=== PATIENT | male | born 1975 | race African-American/Black ===

== ENCOUNTER 2016-10-04 18:49 | Emergency (ER) | payer OTHER ==
--- NOTE | 2016-10-04 19:21 | ER Document Report ---
ED Medical Screen (RME) - General Stated Complaint: NECK, RIGHT SHOULDER AND BACK PAIN Notes: Right shoulder and back pain for a month and a half after a work-related accident. TRAVEL OUTSIDE OF THE [place] IN LAST 30 DAYS: No - Related Data Allergies/Adverse Reactions: hydrocodone bitartrate [From Vicodin] Allergy (Verified 08/15/16 17:22) Past Medical History - Immunizations Immunizations up to date: Yes Hx Diphtheria, Pertussis, Tetanus Vaccination: Yes Physical Exam - Vital signs Vitals: Temp Pulse Resp BP Pulse Ox 98.3 F 87 18 131/81 H 100 10/04/16 19:09 10/04/16 19:09 10/04/16 19:09 10/04/16 19:09 10/04/16 19:09 Course - Vital Signs Vital signs: Temp Pulse Resp BP Pulse Ox 98.3 F 87 18 131/81 H 100 10/04/16 19:09 10/04/16 19:09 10/04/16 19:09 10/04/16 19:09 10/04/16 19:09
[2016-10-04] MEDS ORDERED: CYCLOBENZAPRINE HCL 10 MG TABLET PO ONE (22:22)
[2016-10-04] MEDS ORDERED: KETOROLAC TROMETHAMINE 60 MG/2 ML SDV IM ONE (22:22)
--- NOTE | 2016-10-04 22:22 | ER Document Report ---
HPI - HPI Patient complains to provider of: shoulder pain Pain Level: 3 Context: Patient is a 41-year-old male who presents with chronic shoulder pain. Patient states that he was injured at work on August 14. He needs had difficulty following up with orthopedics due to not having Workmen's Comp. out of his job and cost of [id number] co-pay. 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 Otherwise he states that his pain has remained about the same. He has been using heat and ice as well as tyrz-[id number]-[id number] anti-inflammatories. Denies any new injury. Otherwise is a healthy male with no other medical issues. - DERM Skin Color: Normal, Matt Past Medical History - General Information source: Patient - Social History Smoking Status: Current Every Day Smoker Chew tobacco use (# tins/day): No Frequency of alcohol use: None Drug Abuse: None Family History: Arthritis, CVA, DM, Hyperlipidemia, Hypertension. denies: CAD, Malignancy, Thyroid Disfunction Patient has suicidal ideation: No Patient has homicidal ideation: No Renal/ Medical History: Denies: Hx Peritoneal Dialysis - Immunizations Immunizations up to date: Yes Hx Diphtheria, Pertussis, Tetanus Vaccination: Yes Vertical Provider Document - CONSTITUTIONAL Agree With Documented VS: Yes Exam Limitations: No Limitations General Appearance: WD/WN, No Apparent Distress - INFECTION CONTROL TRAVEL OUTSIDE OF THE [place] IN LAST 30 DAYS: No - RESPIRATORY Respiratory: Chest Non-Tender O2 Sat by Pulse Oximetry: 100 - CARDIOVASCULAR Pulses: Normal: Radial Notes: Bilateral upper extremities digits with capillary refill less than 2 seconds - MUSCULOSKELETAL/EXTREMETIES Musculoskeletal/Extremeties: negative: Edema Notes: Patient's right upper extremity is very tense, inflamed. 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 No evidence of erythema, swelling or tenderness indicative of a septic joint. Patient passive range of motion is full active range of motion is very guarded. - NEURO Level of Consciousness: Awake, Alert, Appropriate Motor/Sensory: No Motor Deficit, No Sensory Deficit Course - Re-evaluation Re-evalutation: 10/04/16 23:01 Patient has evidence of a chronic internal shoulder injury. Patient was referred to new orthopedic practice and also told to get in contact with the social work office for assistance in caring for co-pays. [facility]. - Vital Signs Vital signs: Temp Pulse Resp BP Pulse Ox 98.3 F 87 18 131/81 H 100 10/04/16 19:09 10/04/16 19:09 10/04/16 19:09 10/04/16 19:09 10/04/16 19:09 Discharge - Discharge Clinical Impression: Shoulder pain Condition: Good Disposition: HOME, SELF-CARE Instructions: Shoulder Injury ([facility]), Oral Narcotic Medication ([facility]), Warm Packs ([facility]), Ice Packs ([facility]), Pain Medication Injection ([facility]) Additional Instructions: [facility] Ask for a hand/arm specialist [id number] Call the hospital main number and ask to speak with Social workers office Prescriptions: Ondansetron HCl [Zofran] 4 mg PO Q6HP PRN #15 tablet PRN Reason: Oxycodone HCl/Acetaminophen [Percocet 5-325 mg Tablet] 1 tab PO Q6HP PRN #15 tab PRN Reason: Meloxicam [Mobic 15 mg Tablet] 15 mg PO DAILY #30 tablet Prednisone 5 mg PO ASDIR #1 tab.ds.pk Forms: Elevated Blood Pressure
[2016-10-04 23:06] VITALS: BP 136/88
== END 2016-10-04 22:40 | disposition home or self-care (01) ==
LOC: ER 18:49
DX: S49.91XA Unspecified injury of right shoulder and upper arm, initial encounter (principal); W22.8XXA Striking against or struck by other objects, initial encounter; Y99.0 Civilian activity done for income or pay; M25.511 Pain in right shoulder; G89.29 Other chronic pain; F17.200 Nicotine dependence, unspecified, uncomplicated
CPT/HCPCS: 99283; 96372; 72040; 72100; 73030; J1885

== ENCOUNTER 2017-05-18 12:58 | Emergency (ER) | payer OTHER ==
[2017-05-18] MEDS ORDERED: IBUPROFEN 800 MG TABLET PO ONE (13:59)
--- NOTE | 2017-05-18 14:08 | ER Document Report ---
ED Extremity Problem, Upper - General Chief Complaint: Shoulder Pain Stated Complaint: RIGHT SHOULDER Time Seen by Provider: 05/18/17 13:37 Mode of Arrival: Ambulatory Information source: Patient Notes: 42-year-old male presents to ED for right shoulder pain. He has had right shoulder pain for since a fall August 15, 2016. He states he fell again 3 days ago. States he fell off the porch playing with his kids and landed on his right shoulder. He states he has never followed up with orthopedics since his first injury because he cannot afford it. 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 TRAVEL OUTSIDE OF THE [place] IN LAST 30 DAYS: No - HPI Patient complains to provider of: Injury, Pain, Right, Shoulder. No: Swelling Onset: Other - 3 days Recent injury: Possibly Where: Home, Outdoors Quality of pain: Sharp Severity of pain: Severe Pain Level: 5 Context: Fall Exacerbated by: Movement, Exertion Relieved by: Rest, Positioning Similar symptoms previously: Yes Recently seen / treated by doctor: No - Related Data Allergies/Adverse Reactions: hydrocodone bitartrate [From Vicodin] Allergy (Verified 05/18/17 13:25) Home Medications: Current Home Medications No Home Medications 05/18/17 [History] Past Medical History - General Information source: Patient - Social History Smoking Status: Current Every Day Smoker Cigarette use (# per day): Yes - 1 cigar a day Chew tobacco use (# tins/day): No Smoking Education Provided: Yes - Less than 2 minute Frequency of alcohol use: None Drug Abuse: None Occupation: none Lives with: Family Family History: Arthritis, CVA, DM, Hyperlipidemia, Hypertension. denies: CAD, Malignancy, Thyroid Disfunction Patient has suicidal ideation: No Patient has homicidal ideation: No - Past Medical History Cardiac Medical History: Reports: None Pulmonary Medical History: Reports: None EENT Medical History: Reports: None Neurological Medical History: Reports: None Endocrine Medical History: Reports: None Renal/ Medical History: Reports: None Malignancy Medical History: Reports None GI Medical History: Reports: None Musculoskeltal Medical History: Reports Hx Musculoskeletal Trauma - right shoulder Skin Medical History: Reports None Psychiatric Medical History: Reports: None Traumatic Medical History: Reports: None Infectious Medical History: Reports: None Surgical Hx: Negative - Immunizations Immunizations up to date: Yes Hx Diphtheria, Pertussis, Tetanus Vaccination: Yes Review of Systems - Review of Systems Constitutional: No symptoms reported EENT: No symptoms reported Cardiovascular: No symptoms reported Respiratory: No symptoms reported Gastrointestinal: No symptoms reported Genitourinary: No symptoms reported Male Genitourinary: No symptoms reported Musculoskeletal: Joint pain - right shoulder Skin: No symptoms reported Hematologic/Lymphatic: No symptoms reported Neurological/Psychological: No symptoms reported -: Yes All other systems reviewed and negative Physical Exam - Vital signs Vitals: Temp Pulse Resp BP Pulse Ox 97.8 F 74 18 135/87 H 97 05/18/17 13:24 05/18/17 13:24 05/18/17 13:24 05/18/17 13:24 05/18/17 13:24 Interpretation: Normal - General General appearance: Appears well, Alert - HEENT Head: Normocephalic, Atraumatic Eyes: Normal Pupils: PERRL - Respiratory Respiratory status: No respiratory distress Chest status: Nontender Breath sounds: Normal Chest palpation: Normal - Cardiovascular Rhythm: Regular Heart sounds: Normal auscultation Murmur: No - Abdominal Inspection: Normal Distension: No distension Bowel sounds: Normal Tenderness: Nontender Organomegaly: No organomegaly - Back Back: Normal, Nontender - Extremities General upper extremity: Normal inspection, Normal color, Normal temperature General lower extremity: Normal inspection, Nontender, Normal color, Normal ROM , Normal temperature, Normal weight bearing. No: Tim's sign Shoulder: Tender, Limited ROM - due to pain Arm: Normal, Nontender Elbow: Normal, Nontender Forearm: Normal, Nontender Wrist: Normal, Nontender Hand: Normal, Nontender - Neurological Neuro grossly intact: Yes Cognition: Normal Orientation: AAOx4 [place] Coma Scale Eye Opening: Spontaneous [place] Coma Scale Verbal: Oriented Samantha Coma Scale Motor: Obeys Commands [place] Coma Scale Total: 15 Speech: Normal Motor strength normal: LUE, RUE, LLE, RLE Sensory: Normal - Psychological Associated symptoms: Normal affect, Normal mood - Skin Skin Temperature: Warm Skin Moisture: Dry Skin Color: Normal Course - Re-evaluation Re-evalutation: 05/18/17 22:25 X-ray discussed with patient patient was given ibuprofen for his pain and instructed to follow-up with his primary doctor for any further treatment. Patient was given a sling for his pain in his shoulder. Patient explained that I could not give him narcotics due to his no obvious injury and this was a chronic pain from August. - Vital Signs Vital signs: Temp Pulse Resp BP Pulse Ox 97.6 F 67 16 120/79 96 05/18/17 15:40 05/18/17 15:40 05/18/17 13:25 05/18/17 15:40 05/18/17 15:40 - Diagnostic Test Radiology reviewed: Image reviewed, Reports reviewed Discharge - Discharge Clinical Impression: Chronic right shoulder pain Fall Qualifiers: Encounter type: initial encounter Qualified Code(s): W19.XXXA - Unspecified fall, initial encounter Condition: Stable Disposition: HOME, SELF-CARE Instructions: Exercise Program for the Shoulder ([facility]) Additional Instructions: Shoulder Injury You have injured your shoulder. This usually results from stretching or tearing of the tendons during trauma. Time and protection are required in order to heal properly. Many injuries are quite disabling, and should be taken seriously. Initial treatment includes cold packs and a sling to rest the shoulder. The physician has assessed the seriousness of your injury, and has outlined a treatment plan. Understand that this treatment may change, depending on how you progress. If a re-examination was recommended, it is important that you follow up as instructed. Some shoulder injuries (such as partial tear of the rotator cuff) are only suspected after you've failed to improve. Call us if there's severe pain, numbness, or loss of function. Sling as Treatment A sling has been applied to protect the injury. This is adequate immobilization for this type of injury -- no cast or brace is required. Keep the sling on at all times until instructed to remove it by the doctor. Even though no cast or splint is needed, you must use the sling. If you use the arm too soon, it may not heal properly! If necessary, the sling can be adjusted for comfort. Return if you are encountering problems with the sling. USE OF [id number] IBUPROFEN: Ibuprofen (Advil, Nuprin, Medipren, Motrin IB) is a medication for fever and pain control. In addition, it has anti- inflammatory effects which may be beneficial, especially in the treatment of injuries. It's best to take ibuprofen with food. Persons with ulcer disease or allergy to aspirin should notify their physician of this before taking ibuprofen. Ibuprofen can be given every four to six hours, for a total of four doses daily. Age Pain or fever dose Antiinflammatory dose 6-8 yr 200 mg (1 tab) 200 mg (1 tab) 9-11 yr 200 mg (1 tab) 200-400 mg (1-2 tab) 11-14 yr 200-400 mg (1-2 tab) 400 mg (2 tab) 15-adult 400 mg (2 tab) 600 mg (3 tab) USE OF TYLENOL (ACETAMINOPHEN): Acetaminophen may be taken for pain relief or fever control. It's much safer than aspirin, offering a wider range of "safe" dosages. It is safe during . Some brand names are Tylenol, Panadol, Datril, Anacin 3, Tempra, and Liquiprin. Acetaminophen can be repeated every four hours. The following are maximum recommended dosages: WEIGHT Dose Drops Elixir Chewable( 80mg) (LBS.) drprs=droppers tsp=teaspoon 6 40 mg 0.4 ml (1/2) 6-11 80 mg 0.8 ml (full) tsp 1 tab 12-16 120 mg 1 1/2 drprs 3/4 tsp 1 1/2 tabs 17-23 160 mg 2 drprs 1 tsp 2 tabs 24-30 240 mg 3 drprs 1 1/2 tsp 3 tabs 30-35 320 mg 2 tsp 4 tabs 36-41 360 mg 2 1/4 tsp 4 1/2 tabs 42-47 400 mg 2 1/2 tsp 5 tabs 48-53 480 mg 3 tsp 6 tabs 54-59 520 mg 3 1/4 tsp 6 1/2 tabs 60-64 560 mg 3 1/2 tsp 7 tabs 65-70 600 mg 3 3/4 tsp 7 1/2 tabs 71-76 640 mg 4 tsp 8 tabs 77-82 720 mg 4 1/2 tsp 9 tabs 83-88 800 mg 5 tsp 10 tabs >89 pounds or adults 650 mg to 900 mg Acetaminophen can be repeated every four hours. Maximum dose not to exceed 4000 mg a day. These maximum recommended dosages are slightly higher than the dosages written on the product container, but these dosages are very safe and below the toxic dosage for acetaminophen. ICE PACKS: Apply ice packs frequently against the painful area. Many different schedules are recommended, such as "20 minutes on, 20 minutes off" or "one hour ice, two hours rest." If you need to work, you may need to go longer between ice treatments. You should plan to have the area ice packed AT LEAST one fourth of the time. The ice should be applied over the wrap, tape, or splint, or over a layer of cloth -- not directly against the skin. Some ice bags have a built-in cloth and can be put directly on the skin. WARM PACKS: After approximately two days, apply gentle heat (such as a heating pad or hot water bottle) for about 20 to 30 minutes about every two hours -- at least four times daily. Warmth and elevation will help you make a more rapid recovery , and will ease the pain considerably. Do not use HOT heat, and never apply heat for longer than 30 minutes. The continuous heat can invisibly damage skin and muscles -- even when no burn is seen on the surface. Damaged muscles can make you MORE sore. FOLLOW-UP CARE: If you have been referred to a physician for follow-up care, call the physician s office for an appointment as you were instructed or within the next two days. If you experience worsening or a significant change in your symptoms, notify the physician immediately or return to the Emergency Department at any time for re-evaluation. Forms: Elevated Blood Pressure, Smoking Cessation Education Referrals: EMILY AMIN MD [ACTIVE STAFF] - Follow up as needed
--- NOTE | 2017-05-18 15:23 | RADIOLOGY REPORT (SQ) ---
EXAM DESCRIPTION: SHOULDER RIGHT 2 OR MORE VIEWS COMPLETED DATE/TIME: 05/18/2017 2:41 pm REASON FOR STUDY: chronic pain with fall 3 days ago COMPARISON: 10/04/2016 NUMBER OF VIEWS: Three views. TECHNIQUE: Internal rotation, external rotation, and Y view images acquired of the right shoulder. LIMITATIONS: None. FINDINGS: MINERALIZATION: Normal. BONES: No acute fracture or dislocation. No worrisome bone lesions. JOINTS: No dislocation. VISUALIZED LUNGS AND RIBS: No pneumothorax. No rib fracture. SOFT TISSUES: No radiopaque foreign body. OTHER: No other significant finding. IMPRESSION: NEGATIVE STUDY OF THE RIGHT SHOULDER. NO RADIOGRAPHIC EVIDENCE OF ACUTE INJURY. TECHNICAL DOCUMENTATION: JOB ID: [id number] [email or web address]- All Rights Reserved
[2017-05-18 15:43] VITALS: BP 120/79
== END 2017-05-18 15:43 | disposition home or self-care (01) ==
LOC: ER 12:58
DX: G89.29 Other chronic pain (principal); M25.511 Pain in right shoulder; W17.89XA Other fall from one level to another, initial encounter; Y92.009 Unspecified place in unspecified non-institutional (private) residence as the place of occurrence of the external cause; F17.210 Nicotine dependence, cigarettes, uncomplicated
CPT/HCPCS: 99283

== ENCOUNTER 2018-07-07 10:37 | Emergency (ER) | payer OTHER ==
--- NOTE | 2018-07-07 12:35 | ER Document Report ---
ED General - General Chief Complaint: Knee Injury Stated Complaint: LACERATION TO LEFT KNEE Time Seen by Provider: 07/07/18 12:22 Notes: Patient is a 43-year-old male that presents to the emergency department for chief complaint of left knee injury. Patient states that while he was at work he was using a hand trimmer, and accidentally slipped from his hand, and hit his left knee, this occurred around 10 AM this morning. He states he is having significant pain in the knee, there was some bleeding, which has since stopped. Denies any numbness, tingling or weakness. He reports he is up-to-date with his immunizations, denies any other injuries. He currently rates his pain as a 6 out of 10, worse with bending his knee, describes as a constant aching sensation. Past Medical History: Denies chronic medical condition Past Surgical History: Denies surgical history Social History: Admits to smoking cigarettes daily, denies alcohol or illicit drug use Family History: Reviewed and noncontributory for presenting illness Allergies: Reviewed, see documented allergy list. REVIEW OF SYSTEMS: Unless otherwise stated in this report the patient's positive and negative responses for review of systems for constitutional, eyes, ENT, cardiovascular, respiratory, gastrointestinal, neurological, genitourinary, musculoskeletal, and integumentary systems and related systems to the presenting problem are either as stated in the HPI or were not pertinent or were negative for the symptoms and/or complaints related to the presenting medical problem. PHYSICAL EXAMINATION: Vital signs reviewed, nursing noted reviewed. GENERAL: Well-appearing, well-nourished and in no acute distress. HEAD: Atraumatic, normocephalic. EYES: Eyes appear normal, extraocular movements intact, sclera anicteric, conjunctiva are normal. ENT: nares patent, oropharynx clear without exudates. Moist mucous membranes. NECK: Normal range of motion, supple without lymphadenopathy LUNGS: Breath sounds clear to auscultation bilaterally and equal. No wheezes rales or rhonchi. HEART: Regular rate and rhythm without murmurs ABDOMEN: Soft, nontender, normoactive bowel sounds. No rebound, guarding, or rigidity. No masses appreciated. EXTREMITIES: There is a 2 cm laceration to the left knee, with no active bleeding, rather superficial, and chevron shaped, there is mild tenderness to palpation of the knee, but the patient overall has good range of motion of the knee, the rest of his extremity exam is grossly unremarkable., good range of motion, no pitting or edema. NEUROLOGICAL: No focal neurological deficits. Moves all extremities spontaneously Motor and sensory grossly intact on exam. PSYCH: Normal mood, normal affect. SKIN: Warm, Dry, normal turgor, no rashes or lesions noted on exposed skin TRAVEL OUTSIDE OF THE [place] IN LAST 30 DAYS: No - Related Data Allergies/Adverse Reactions: hydrocodone bitartrate [From Vicodin] Allergy (Verified 07/07/18 10:42) Past Medical History - Social History Smoking Status: Current Every Day Smoker Family History: Arthritis, CVA, DM, Hyperlipidemia, Hypertension. denies: CAD, Malignancy, Thyroid Disfunction Renal/ Medical History: Denies: Hx Peritoneal Dialysis Musculoskeletal Medical History: Reports Hx Musculoskeletal Trauma - right shoulder - Immunizations Immunizations up to date: Yes Hx Diphtheria, Pertussis, Tetanus Vaccination: Yes Physical Exam - Vital signs Vitals: Temp Pulse Resp BP Pulse Ox 98.4 F 87 18 100/66 96 07/07/18 10:46 07/07/18 10:46 07/07/18 10:46 07/07/18 10:46 07/07/18 10:46 Course - Re-evaluation Re-evalutation: Patient seen and examined vital signs reviewed. Patient was evaluated and treated as appropriate for the patient's presenting symptoms and complaint, with consideration of any critical or life threatening conditions that may be associated with their obtained history and exam as noted above. Patient was treated with laceration repair with Steri-Strips, patient declined wanting any sutures at this time, he did not care about the scar, and this was tolerable and not particularly deep injury and naproxen 500 mg p.o. The patient was re-evaluated and was stable, reports up-to-date with tetanus Evaluation was most consistent with left knee laceration Plan of care was discussed with the patient at this point, after careful consideration I feel that that patient can be discharged from the emergency department, the patient was educated treatments and reasons to return to the emergency department based on their presumed diagnosis as noted above, they were advised to followup with a primary care physician in 2-3 days. Patient was agreeable to plan of care. *Note is created using voice recognition software and may contain spelling, syntax or grammatical errors. - Vital Signs Vital signs: Temp Pulse Resp BP Pulse Ox 98.4 F 75 16 116/79 97 07/07/18 10:46 07/07/18 13:14 07/07/18 13:14 07/07/18 13:14 07/07/18 13:14 Procedures - Laceration/Wound Repair Left Knee Wound length (cm): 2 Wound's Depth, Shape: Superficial Laceration pre-procedure: Shur-Clens applied Wound explored: Clean Wound Repaired With: Steri-strips Discharge - Discharge Clinical Impression: Laceration of knee Qualifiers: Encounter type: initial encounter Laterality: left Qualified Code(s): S81.012A - Laceration without foreign body, left knee, initial encounter Condition: Stable Disposition: HOME, SELF-CARE Instructions: Antibiotic Ointment Protection ([facility]), Laceration Care ([facility]) Additional Instructions: Leave the Steri-Strips in place until they fall off on their own, he will have a scar because we did not repair this with sutures. Keep the area clean and dry. You can apply triple antibiotic ointment, after the Steri-Strips fall off. Prescriptions: Naproxen 500 mg PO Q12 #30 tablet Referrals: JOSE M COLLINS MD [ACTIVE STAFF] - Follow up in 3-5 days (OR YOUR PRIMARY CARE.)
[2018-07-07] MEDS ORDERED: NAPROXEN 250 MG TABLET PO ONE (12:39)
[2018-07-07 13:24] VITALS: BP 116/79
== END 2018-07-07 13:24 | disposition home or self-care (01) ==
LOC: ER 10:37
DX: S81.012A Laceration without foreign body, left knee, initial encounter (principal); W29.3XXA Contact with powered garden and outdoor hand tools and machinery, initial encounter; Y99.0 Civilian activity done for income or pay; F17.210 Nicotine dependence, cigarettes, uncomplicated
CPT/HCPCS: 99283

== ENCOUNTER 2019-05-20 10:37 | Emergency (ER) | payer SELFPAY ==
[2019-05-20 10:47] VITALS: BP 123/70
[2019-05-20] MEDS ORDERED: TETRACAINE HCL 0.5% OPH SOLN 4 ML OS ONE (11:37)
--- NOTE | 2019-05-20 11:44 | ER Document Report ---
ED Medical Screen (RME) - General Chief Complaint: Eye Problem Stated Complaint: EYE PAIN Time Seen by Provider: 05/20/19 11:37 TRAVEL OUTSIDE OF THE [place] IN LAST 30 DAYS: No - HPI Notes: 05/20/19 11:43 Patient is a 44-year-old male who presents complaining of increased eye pain and feeling of swelling over the past several days. Patient had an injury 1 month ago when a socket from a socket wrench broke off and hit him in the eyeball. Patient states that his eye was sticking out of his head and he was holding it in his hand. He went to [facility] [facility] at that time and they put it back in, but has retinal detachment and other issues with the eye. He is supposed to be seeing [facility] next week. Patient presents today because of increased pain. Denies CONTRERAS, fever, neck pain, URI, CP, SOB, Abd pain, dysuria, back pain, or rash. I have treated and performed a rapid initial assessment of this patient. A comprehensive ED assessment and evaluation of the patient, analysis of test results and completion of medical decision making process will be conducted by additional ED providers. PHYSICAL EXAMINATION: GENERAL: Well-appearing, well-nourished and in no acute distress. A&Ox4. Answers questions appropriately. - Related Data Allergies/Adverse Reactions: hydrocodone bitartrate [From Vicodin] Allergy (Verified 05/20/19 10:43) Past Medical History Renal/ Medical History: Denies: Hx Peritoneal Dialysis Musculoskeltal Medical History: Reports Hx Musculoskeletal Trauma - right sukhwinder ulder - Immunizations Immunizations up to date: Yes Hx Diphtheria, Pertussis, Tetanus Vaccination: Yes Physical Exam - Vital signs Vitals: Temp Pulse Resp BP Pulse Ox 97.7 F 73 16 123/70 96 05/20/19 10:46 05/20/19 10:46 05/20/19 10:46 05/20/19 10:46 05/20/19 10:46 Course - Vital Signs Vital signs: Temp Pulse Resp BP Pulse Ox 97.7 F 73 16 123/70 96 05/20/19 10:46 05/20/19 10:46 05/20/19 10:46 05/20/19 10:46 05/20/19 10:46
[2019-05-20] MEDS ORDERED: ACETAMINOPHEN 325 MG TABLET PO ONE (13:09)
== END 2019-05-20 13:41 | disposition left against medical advice (07) ==
LOC: ER 10:37
DX: H57.10 Ocular pain, unspecified eye (principal); Z88.5 Allergy status to narcotic agent; Z53.20 Procedure and treatment not carried out because of patient's decision for unspecified reasons
CPT/HCPCS: 99281; J3490

== ENCOUNTER 2019-05-21 11:52 | Emergency (ER) | payer SELFPAY ==
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
--- NOTE | 2019-05-21 13:07 | RADIOLOGY REPORT (SQ) ---
EXAM DESCRIPTION: CT ORBIT/SELLA WITHOUT COMPLETED DATE/TIME: 05/21/2019 12:54 pm REASON FOR STUDY: 6; left eye pain/swelling; recent detached retinae COMPARISON: None. TECHNIQUE: Noncontrasted images through the orbits windowed for bone and soft tissue. Additional co tomas and sagittal reconstructed images reviewed. All images stored on PACS. All CT scanners at this facility use dose modulation, iterative reconstruction, and/or weight based d osing when appropriate to reduce radiation dose to as low as reasonably achievable (ALARA). [facility]: Dose Right [facility]: CareDose [facility]: Dose Right [facility]: Teradose 4D [facility]: Smart Technologies RADIATION DOSE: CT Rad equipment meets quality standard of care and radiation dose reduction techniq ues were employed. CTDIvol: 30.4 mGy. DLP: 541 mGy-cm. mGy. LIMITATIONS: None. FINDINGS: FACIAL BONES: No fracture or bone lesion. ORBITS: Intact. No fracture. Symmetric intact globes and retroorbital soft tissues. PARANASAL SINUSES: Clear. No significant mucosal thickening, mass or fluid. No nasal polyps. Maxilla ry sinus outlets are patent. SOFT TISSUES: No mass or edema. INFERIOR BRAIN: Limited view. No acute findings. OTHER: No other significant finding. IMPRESSION: NO ACUTE FINDINGS. TECHNICAL DOCUMENTATION: JOB ID: [id number] Quality ID # [id number]: Final reports with documentation of one or more dose reduction techniques (e.g., Au tomated exposure control, adjustment of the mA and/or kV according to patient size, use of iterative reconstruction technique) 2010 [employer] All Rights Reserved Reading location - IP/workstation name: [email or web address]
[2019-05-21 13:48] VITALS: BP 134/77
== END 2019-05-21 13:53 | disposition home or self-care (01) ==
LOC: ER 11:52
DX: H57.12 Ocular pain, left eye (principal); Z98.890 Other specified postprocedural states
CPT/HCPCS: 70480; 99284

== ENCOUNTER 2019-05-29 17:55 | Emergency (ER) | payer SELFPAY ==
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
[2019-05-29] MEDS ORDERED: MORPHINE SULFATE 10 MG/ML INJ IV ONE (21:16)
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
[2019-05-30 00:25] VITALS: BP 129/79
== END 2019-05-30 00:55 | disposition home or self-care (01) ==
LOC: ER 17:55
DX: H57.12 Ocular pain, left eye (principal); H54.40 Blindness, one eye, unspecified eye; R51 Headache; G89.29 Other chronic pain
CPT/HCPCS: 70481; 99283

== ENCOUNTER 2019-06-24 14:34 | Emergency (ER) | payer SELFPAY ==
[2019-06-24] MEDS ORDERED: TETRACAINE HCL 0.5% OPH SOLN 4 ML ONE (14:44)
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
[2019-06-24] MEDS ORDERED: OXYCODONE-ACETAMINOPHEN 5-325 MG TABLET PO ONE (16:47)
--- NOTE | 2019-06-24 18:24 | ER Document Report ---
ED General - General Chief Complaint: Eye Problem Stated Complaint: LEFT EYE REDNESS, SWELLING, PAIN Time Seen by Provider: 06/24/19 14:53 Primary Care Provider: MIRA NAYLOR MD [ACTIVE STAFF] - Follow up as needed Mode of Arrival: Ambulatory TRAVEL OUTSIDE OF THE [place] IN LAST 30 DAYS: No - HPI Notes: Patient is a 44-year-old male with a history of left eye surgery 2 weeks ago status post injury 2 months ago who presents complaining of left upper eyelid redness and swelling x3 days. Pt states that he has had redness and intermittent pain since the surgery and has blurriness as they still have to replace his lens. Patient states that he stopped using his eyedrop as prescribed to him by his surgeon. No other recent illness. Denies drug allerg ies. No other concerns or complaints. He has not contacted his eye surgeon with his current issue. Denies any headache, fever, head injury, neck pain, changes in speech/mentation/hearing, URI, sore throat, chest pain, palpitations, syncope, cough, shortness of breath, wheeze, dyspnea, abdominal pain, nausea/vomiting/diarrhea, urinary retention, dysuria, hematuria, or rash. - Related Data Allergies/Adverse Reactions: hydrocodone bitartrate [From Vicodin] Allergy (Verified 05/20/19 10:43) Home Medications: "eye drops" Past Medical History - General Information source: Patient - Social History Smoking Status: Never Smoker Chew tobacco use (# tins/day): No Frequency of alcohol use: None Drug Abuse: None Family History: Arthritis, CVA, DM, Hyperlipidemia, Hypertension. denies: CAD, Malignancy, Thyroid Disfunction Patient has suicidal ideation: No Patient has homicidal ideation: No Renal/ Medical History: Denies: Hx Peritoneal Dialysis Musculoskeletal Medical History: Reports Hx Musculoskeletal Trauma - right shoulder - Immunizations Immunizations up to date: Yes Hx Diphtheria, Pertussis, Tetanus Vaccination: Yes Review of Systems - Review of Systems -: Yes All other systems reviewed and negative Physical Exam - Notes Notes: PHYSICAL EXAMINATION: GENERAL: Well-appearing, well-nourished and in no acute distress. A&Ox4 HEAD: Atraumatic, normocephalic. EYES: sclera anicteric, conjunctiva left shows very injection (normal per pt) w/o discharge or matting. + stye (tender, swollen, no abscess) to the left upper eyelid that reproduces pt's symptoms. Non-tender to palp of the globe and eye itself. No surrounding erythema or swelling noted. Wood's lamp/flourescein: No abrasion, laceration, ulceration, or toby sign noted. No obvious foreign body appreciated. Tonometry: 27 pressure b/l. ENT: EAC clear b/l. TM's intact b/l without erythema, fluid, or perforation. Nares patent and without discharge. oropharynx clear without exudates. No tonsilar hypertrophy or erythema. Moist mucous membranes. No sinus tenderness. Uvula midline. No palatine shift. No airway compromise. No drooling or hoarseness. NECK: Normal range of motion, supple without lymphadenopathy. No rigidity/meningismus. LUNGS: Breath sounds clear to auscultation bilaterally and equal. No wheezes rales or rhonchi. HEART: Regular rate and rhythm without murmurs, rubs, gallops. NEUROLOGICAL: Cranial nerves grossly intact. Normal speech, normal gait. PSYCH: Normal mood, normal affect. SKIN: Warm, Dry, normal turgor, no rashes or lesions noted. Course - Re-evaluation Re-evalutation: 06/24/19 18:22 Patient is an afebrile, well-hydrated, 44-year-old male who presents to the emergency department with left upper eyelid stye. Vitals are acceptable without significant tachycardia, tachypnea, or hypoxia. PE is otherwise unremarkable. Tonometry 27 b/l and according to uptodate pt needs to f/u within 1 weeks time with those pressures. Patient is nontoxic-appearing and is able to tolerate p.o. without difficulty. No labs or imaging warranted. Low suspicion for any retained corneal or lid foreign body, deep space infection including orbital cellulitis/abscess, acute glaucoma, penetrating globe injury, retinal detachment, meningitis, sepsis, fracture, compartment syndrome. I will send home with a prescription for erythromycin ointment to use as directed. Conservative measures otherwise for symptoms with proper handwashing. Recheck with your PCM in 3-5 days. Schedule follow-up with ophthalmology/eye surgeon. Return to the ED with any worsening/concerning symptoms otherwise as reviewed in discharge. Patient is in agreement. Discharge - Discharge Clinical Impression: Hordeolum of left upper eyelid Qualifiers: Hordeolum type: internum Qualified Code(s): H00.024 - Hordeolum internum left upper eyelid Condition: Stable Disposition: HOME, SELF-CARE Additional Instructions: Keep eyes clean Avoid scratching/touching eyes Wash hands regularly Use eye ointment as directed Maintain adequate fluid intake tylenol/ibuprofen as needed over the counter cold medication as needed for symptoms F/u: with your PCM in 2-3 days for a recheck The pressure in both your eyes was 27. You need to contact your eye surgeon or see ophthalmology this week for recheck* Call your surgeon on Wednesday. Return to the ED with any worsening symptoms and/or development of fever, headache, changes in vision, eye pain, worsening eye redness, redness around the eyes, purulent discharge, sore throat, facial swelling, neck pain/stiffness, chest pain, palpitations, syncope, shortness of breath, trouble breathing, abdominal pain, n/v/d, blood in stool/urine, dysuria, or other worsening symptoms that are concerning to you. Forms: Elevated Blood Pressure Referrals: MIRA NAYLOR MD [ACTIVE STAFF] - Follow up as needed
[2019-06-24 18:29] VITALS: BP 152/80
== END 2019-06-24 18:54 | disposition home or self-care (01) ==
LOC: ER 14:34
DX: H00.024 Hordeolum internum left upper eyelid (principal); H57.12 Ocular pain, left eye; H57.89 Other specified disorders of eye and adnexa
CPT/HCPCS: 99283; J3490

== ENCOUNTER 2020-02-26 21:47 | Emergency (ER) | payer SELFPAY ==
[2020-02-26 22:06] VITALS: BP 141/85
--- NOTE | 2020-02-26 22:40 | ER Document Report ---
ED Medical Screen (RME) - General Chief Complaint: Rectal Bleeding Stated Complaint: RECTAL BLEEDING, GENERAL WEAKNESS Time Seen by Provider: 02/26/20 22:07 Mode of Arrival: Ambulatory Information source: Patient Notes: Patient is a 45-year-old male presenting to the emergency department with concern for bright red rectal bleeding. Patient reports that started today. He states there is been several episodes and he is also passed clots. He states now he feels a little faint. He has never had a history of this. He denies knowledge of any hemorrhoids. Patient alert, oriented, no acute distress noted. Rectal exam deferred until patient is in a room. I have greeted and performed a rapid initial assessment of this patient. A comprehensive ED assessment and evaluation of the patient, analysis of test results and completion of the medical decision making process will be conducted by additional ED providers. I have specifically instructed the patient or family members with the patient to immediately return to any nursing staff should anything change in the patient's condition or with their chief complaint. TRAVEL OUTSIDE OF THE [place] IN LAST 30 DAYS: No - Related Data Allergies/Adverse Reactions: hydrocodone bitartrate [From Vicodin] Allergy (Verified 02/26/20 22:07) Past Medical History - Social History Frequency of alcohol use: None Drug Abuse: None Renal/ Medical History: Denies: Hx Peritoneal Dialysis Musculoskeltal Medical History: Reports Hx Musculoskeletal Trauma - right shoulder - Immunizations Immunizations up to date: Yes Hx Diphtheria, Pertussis, Tetanus Vaccination: Yes Physical Exam - Vital signs Vitals: Temp Pulse Resp BP Pulse Ox 98.5 F 82 20 141/85 H 97 02/26/20 22:05 02/26/20 22:05 02/26/20 22:05 02/26/20 22:05 02/26/20 22:05 Course - Vital Signs Vital signs: Temp Pulse Resp BP Pulse Ox 98.5 F 82 20 141/85 H 97 02/26/20 22:07 02/26/20 22:05 02/26/20 22:05 02/26/20 22:05 02/26/20 22:05
[2020-02-26 22:57] LABS: ABSOLUTE EOSINOPHILS # (AUTO) 0.1 10^3/uL (0.0-0.6); ABSOLUTE LYMPHOCYTES (AUTO) 1.8 10^3/uL (0.5-4.7); ABSOLUTE MONOCYTES (AUTO) 0.3 10^3/uL (0.1-1.4); ABSOLUTE NEUT (AUTO) 2.1 10^3/uL (1.7-8.2); EOSINOPHILS % (AUTO) 1.3 % (0-6); HEMATOCRIT 46.1 % (37.9-51.0); HEMOGLOBIN 15.8 g/dL (13.5-17.0); LYMPHOCYTES % (AUTO) 41.8 % (13-45); MEAN CORPUSCULAR HEMOGLOBIN 31.4 pg (27.0-33.4); MEAN CORPUSCULAR HGB CONC 34.4 g/dL (32.0-36.0); MEAN CORPUSCULAR VOLUME 91 fl (80-97); MONOCYTES % (AUTO) 6.2 % (3-13); PLATELET COUNT 174 10^3/uL (150-450); RED BLOOD COUNT 5.05 10^6/uL (4.35-5.55); RED CELL DISTRIBUTION WIDTH 13.2 % (11.5-14.0); SEGMENTED NEUTROPHILS % (AUTO) 49.7 % (42-78); TOTAL CELLS COUNTED % (AUTO) 100 %; WHITE BLOOD COUNT 4.2 10^3/uL (4.0-10.5)
[2020-02-26 23:17] LABS: ALBUMIN 4.8 g/dL (3.5-5.0); ALKALINE PHOSPHATASE 63 U/L (38-126); ASPARTATE AMINO TRANSFERASE 24 U/L (17-59); BILIRUBIN,TOTAL 0.4 mg/dL (0.2-1.3); BLOOD UREA NITROGEN 21 mg/dL (7-20); GLUCOSE 92 mg/dL (75-110); POTASSIUM 4.4 mmol/L (3.6-5.0); TOTAL PROTEIN 8.3 g/dL (6.3-8.2)
[2020-02-26 23:38] LABS: CARBON DIOXIDE 28 mmol/L (22-30); CHLORIDE 103 mmol/L (98-107)
[2020-02-26 23:41] LABS: ANION GAP 6 (5-19)
== END 2020-02-27 02:22 | disposition left against medical advice (07) ==
LOC: ER 21:47
DX: Z53.20 Procedure and treatment not carried out because of patient's decision for unspecified reasons (principal); K62.5 Hemorrhage of anus and rectum; R53.1 Weakness; Z88.8 Allergy status to other drugs, medicaments and biological substances
CPT/HCPCS: 36415; 80053; 85025; 86850; 86900; 86901; 99281

== ENCOUNTER 2020-03-04 06:10 | Emergency (ER) | payer SELFPAY ==
[2020-03-04 07:13] LABS: HEMATOCRIT 43.4 % (37.9-51.0); HEMOGLOBIN 14.7 g/dL (13.5-17.0); MEAN CORPUSCULAR HEMOGLOBIN 31.6 pg (27.0-33.4); MEAN CORPUSCULAR HGB CONC 33.9 g/dL (32.0-36.0); MEAN CORPUSCULAR VOLUME 93 fl (80-97); PLATELET COUNT 167 10^3/uL (150-450); RED BLOOD COUNT 4.66 10^6/uL (4.35-5.55); RED CELL DISTRIBUTION WIDTH 13.5 % (11.5-14.0)
[2020-03-04 07:34] LABS: ALBUMIN 3.5 g/dL (3.5-5.0); ALKALINE PHOSPHATASE 48 U/L (38-126); ANION GAP 5 (5-19); ASPARTATE AMINO TRANSFERASE 18 U/L (17-59); BILIRUBIN,TOTAL 0.3 mg/dL (0.2-1.3); BLOOD UREA NITROGEN 18 mg/dL (7-20); CALCIUM 8.4 mg/dL (8.4-10.2); CARBON DIOXIDE 25 mmol/L (22-30); CHLORIDE 108 mmol/L (98-107); CREATINE KINASE 105 U/L (55-170); GLUCOSE 92 mg/dL (75-110); POTASSIUM 3.4 mmol/L (3.6-5.0); TOTAL PROTEIN 6.6 g/dL (6.3-8.2)
[2020-03-04 07:45] LABS: CREATINE KINASE MB 0.79 ng/mL (<4.55)
[2020-03-04 07:50] LABS: ABSOLUTE LYMPHOCYTES# (MANUAL) 1.5 10^3/uL (0.5-4.7); ABSOLUTE MONOCYTES # (MANUAL) 0.4 10^3/uL (0.1-1.4); BAND NEUTROPHILS % (MANUAL) 1 % (3-5); BASOPHILS % (MANUAL) 1 % (0-2); EOSINOPHILS % (MANUAL) 2 % (0-6); LYMPHOCYTES % (MANUAL) 44 % (13-45); MONOCYTES % (MANUAL) 14 % (3-13); SEGMENTED NEUTROPHILS % (MAN) 31 % (42-78); TOTAL CELLS COUNTED 100
[2020-03-04 07:52] LABS: PLATELET COMMENT ADEQUATE; RBC MORPHOLOGY COMMENT NORMO-CYTIC/CHROMIC
[2020-03-04 08:04] LABS: TROPONIN I < 0.012 ng/mL
--- NOTE | 2020-03-04 08:06 | EKG REPORT ---
SEVERITY:- NORMAL ECG - SINUS RHYTHM : Confirmed by: Edgar Villar 04-Mar-2020 08:06:09
--- NOTE | 2020-03-04 08:25 | RADIOLOGY REPORT (SQ) ---
EXAM DESCRIPTION: CHEST SINGLE VIEW IMAGES COMPLETED DATE/TIME: 03/04/2020 8:12 am REASON FOR STUDY: chest pain COMPARISON: 08/15/2016 EXAM PARAMETERS: NUMBER OF VIEWS: One view. TECHNIQUE: Single frontal radiographic view of the chest acquired. RADIATION DOSE: NA LIMITATIONS: None. FINDINGS: LUNGS AND PLEURA: No opacities, masses or pneumothorax. No pleural effusion. MEDIASTINUM AND HILAR STRUCTURES: No masses. Contour normal. HEART AND VASCULAR STRUCTURES: Heart normal in size. Normal vasculature. BONES: No acute findings. HARDWARE: None in the chest. OTHER: No other significant finding. IMPRESSION: NO ACUTE RADIOGRAPHIC FINDING IN THE CHEST. TECHNICAL DOCUMENTATION: JOB ID: [id number] 2010 [employer]- All Rights Reserved Reading location - IP/workstation name: [email or web address]
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
[2020-03-04 12:19] VITALS: BP 126/88
== END 2020-03-04 12:45 | disposition home or self-care (01) ==
LOC: ER 06:10
DX: F41.9 Anxiety disorder, unspecified (principal); R07.9 Chest pain, unspecified; R06.02 Shortness of breath; R05 Cough; Z87.891 Personal history of nicotine dependence; Z88.6 Allergy status to analgesic agent; Z88.5 Allergy status to narcotic agent
CPT/HCPCS: 36415; 71045; 80053; 82550; 82553; 84484; 85025; 93005; 93010; 99285

== ENCOUNTER 2020-09-04 14:00 | Emergency (ER) | payer SELFPAY ==
--- NOTE | 2020-09-04 14:43 | ER Document Report ---
ED Medical Screen (RME) - General Chief Complaint: Shortness Of Breath Stated Complaint: SHORT OF BREATH,CHEST TIGHTNESS Time Seen by Provider: 09/04/20 14:37 Notes: Patient presents complaining of chest pain for several months and abdominal pain for the past several months as well. Patient states he was sleeping and felt like he stopped breathing which woke him up. Patient reports nausea vomiting x1 episode today. Patient denies any fever or diarrhea. Patient reports a smoker's cough. Patient does have a history of asthma. I have greeted and performed a rapid initial assessment of this patient. A comprehensive ED assessment and evaluation of the patient, analysis of test results and completion of the medical decision making process will be conducted by additional ED providers. TRAVEL OUTSIDE OF THE [place] IN LAST 30 DAYS: No - Related Data Allergies/Adverse Reactions: hydrocodone bitartrate [From Vicodin] Allergy (Verified 03/04/20 06:28) tramadol Allergy (Verified 03/04/20 06:28) Past Medical History Renal/ Medical History: Denies: Hx Peritoneal Dialysis Musculoskeltal Medical History: Reports Hx Musculoskeletal Trauma - right shoulder - Immunizations Immunizations up to date: Yes Hx Diphtheria, Pertussis, Tetanus Vaccination: Yes Physical Exam - Vital signs Vitals: Temp Pulse Resp BP Pulse Ox 98.2 F 94 20 132/78 H 99 09/04/20 14:01 09/04/20 14:01 09/04/20 14:01 09/04/20 14:01 09/04/20 14:01 - General General appearance: Appears well, Alert Notes: Generalized abdominal tenderness - Cardiovascular Rhythm: Regular Heart sounds: S1 appreciated, S2 appreciated Course - Vital Signs Vital signs: Temp Pulse Resp BP Pulse Ox 98.2 F 94 20 132/78 H 99 09/04/20 14:01 09/04/20 14:01 09/04/20 14:01 09/04/20 14:01 09/04/20 14:01
--- NOTE | 2020-09-04 15:32 | RADIOLOGY REPORT (SQ) ---
EXAM DESCRIPTION: ACUTE ABDOMEN SERIES IMAGES COMPLETED DATE/TIME: Chest x-ray dated 03/04/2020 09/04/2020 3:20 pm REASON FOR STUDY: cp, abd pain COMPARISON: None. NUMBER OF VIEWS: Three views. TECHNIQUE: Frontal chest, supine abdomen and upright/decubitus abdomen radiographic images acquired. LIMITATIONS: None. FINDINGS: CHEST: Lungs clear of infiltrates. FREE AIR: None. No abnormal gas collections. BOWEL GAS PATTERN: Gas pattern is nonobstructive. Moderate amount of stool is noted throughout the c olon. CALCIFICATIONS: No suspicious calcifications. HARDWARE: None in the abdomen. SOFT TISSUES: No gross mass or suggestion of organomegaly. BONES: No acute fracture. No worrisome bone lesions. OTHER: No other significant finding. IMPRESSION: Constipation. No obstruction. TECHNICAL DOCUMENTATION: JOB ID: [id number] [employer]- All Rights Reserved Reading location - IP/workstation name: [email or web address]
[2020-09-04 15:43] LABS: ABSOLUTE EOSINOPHILS # (AUTO) 0.1 10^3/uL (0.0-0.6); ABSOLUTE MONOCYTES (AUTO) 0.2 10^3/uL (0.1-1.4); ABSOLUTE NEUT (AUTO) 1.7 10^3/uL (1.7-8.2); BASOPHILS % (AUTO) 1.5 % (0-2); EOSINOPHILS % (AUTO) 2.1 % (0-6); HEMATOCRIT 43.1 % (37.9-51.0); LYMPHOCYTES % (AUTO) 33.6 % (13-45); MEAN CORPUSCULAR HEMOGLOBIN 31.8 pg (27.0-33.4); MEAN CORPUSCULAR HGB CONC 34.7 g/dL (32.0-36.0); MEAN CORPUSCULAR VOLUME 92 fl (80-97); MONOCYTES % (AUTO) 6.3 % (3-13); PLATELET COUNT 174 10^3/uL (150-450); RED BLOOD COUNT 4.71 10^6/uL (4.35-5.55); RED CELL DISTRIBUTION WIDTH 13.3 % (11.5-14.0); SEGMENTED NEUTROPHILS % (AUTO) 56.5 % (42-78); TOTAL CELLS COUNTED % (AUTO) 100 %
[2020-09-04 16:06] LABS: ALBUMIN 4.2 g/dL (3.5-5.0); ALKALINE PHOSPHATASE 58 U/L (38-126); ASPARTATE AMINO TRANSFERASE 25 U/L (17-59); BILIRUBIN,TOTAL 0.3 mg/dL (0.2-1.3); BLOOD UREA NITROGEN 13 mg/dL (7-20); CALCIUM 9.6 mg/dL (8.4-10.2); GLUCOSE 97 mg/dL (75-110); TOTAL PROTEIN 7.6 g/dL (6.3-8.2)
[2020-09-04 16:11] LABS: CARBON DIOXIDE 32 mmol/L (22-30); CHLORIDE 103 mmol/L (98-107)
[2020-09-04 16:16] LABS: ANION GAP 3 (5-19)
--- NOTE | 2020-09-04 16:19 | ER Document Report ---
ED General - General Chief Complaint: Shortness Of Breath Stated Complaint: SHORT OF BREATH,CHEST TIGHTNESS Time Seen by Provider: 09/04/20 14:37 Primary Care Provider: [facility] [Outside] - Follow up in 3-5 days (To establish primary care and to discuss smoking cessation) Notes: 45-year-old male presents with 2 complaints. Chest pain intermittently dull/sharp in a small area just around the sternum for about a year intermittently nonexertional with no shortness of breath nausea vomiting. No cough no Covid concerns. Also has "stomach action going on" he describes a 6 months of intermittent burning upper abdominal pain worse after eating with nausea and vomiting although no recent nausea vomiting but it has been worse for a week since he broke up with his . Smokes cigars but does not have prim jordana care and is no evidence of heart disease thrombosis, ulcers or anything else in his past. Patient is a reasonably poor historian TRAVEL OUTSIDE OF THE [place] IN LAST 30 DAYS: No - Related Data Allergies/Adverse Reactions: hydrocodone bitartrate [From Vicodin] Allergy (Verified 03/04/20 06:28) tramadol Allergy (Verified 03/04/20 06:28) Past Medical History - General Information source: Patient - Social History Smoking Status: Current Every Day Smoker Smoking Education Provided: Yes - The patient ED visit today was directly related to their abuse of tobacco. Frequency of alcohol use: None Drug Abuse: None Family History: Arthritis, CVA, DM, Hyperlipidemia, Hypertension. denies: CAD, Malignancy, Thyroid Disfunction Pulmonary Medical History: Reports: Hx Asthma Renal/ Medical History: Denies: Hx Peritoneal Dialysis Musculoskeletal Medical History: Reports Hx Musculoskeletal Trauma - right shoulder - Immunizations Immunizations up to date: Yes Hx Diphtheria, Pertussis, Tetanus Vaccination: Yes Review of Systems - Review of Systems Notes: REVIEW OF SYSTEMS GEN: Denies fever, chills, weight loss ENT: Denies sore throat, nasal discharge, ear pain EYES: Denies blurry vision, eye pain, discharge CV: Pain RESP: Denies cough, shortness of breath, wheezing GI: Abdominal pain a MSK: Denies joint pain/swelling, edema, SKIN: Denies rash, skin lesions LYMPH: Denies swollen glands/lymph nodes NEURO: Denies headache, focal weakness or numbness, dizziness PSYCH: Denies depression, suicidal or homicidal ideation PHYSICAL EXAMINATION General: No acute distress, well-nourished Head: Atraumatic, normocephalic ENT: Mouth normal, oropharynx moist, no exudates or tonsillar enlargement Eyes: Conjunctiva normal, pupils equal, lids normal Neck: No JVD, supple, no guarding CVS: Normal rate, regular rhythm, no murmurs Resp: No resp distress, equal and normal breath sounds bilaterally GI: Nondistended, soft, no tenderness to palpation, no rebound or guarding Ext: No deformities, no edema, normal range of motion in upper and lower ext Back: No CVA or midline TTP Skin: No rash, warm Lymphatic: No lymphadeopathy noted Neuro: Awake, alert. Face symmetric. GCS 15. Physical Exam - Vital signs Vitals: Temp Pulse Resp BP Pulse Ox 98.2 F 94 20 132/78 H 99 09/04/20 14:01 09/04/20 14:01 09/04/20 14:01 09/04/20 14:01 09/04/20 14:01 Course - Re-evaluation Re-evalutation: 09/04/20 16:17 Patient presents with chronic chest and abdominal pain of unclear etiology with normal physical exam normal EKG and vital signs, and labs are mostly normal as well. I do not think this was reflects angina or acute coronary syndrome based on the time course, he may have gastritis ulcer and reflux. Will start on PPI and refer to primary care, smoking cessation was discussed as well. Leukopenia could be viral incidental but will need to be repeated I have discussed with the patient there likely diagnosis, aftercare plan, follow-up plans and my usual and customary return precautions. They verbalized understanding of this. - Vital Signs Vital signs: Temp Pulse Resp BP Pulse Ox 98.2 F 88 18 149/86 H 95 09/04/20 16:40 09/04/20 16:40 09/04/20 16:40 09/04/20 16:40 09/04/20 16:40 - Laboratory Results Result Diagrams: 09/04/20 15:20 09/04/20 15:20 Laboratory Results Interpreted: 09/04/20 09/04/20 15:20 15:20 WBC 3.0 L Carbon Dioxide 32 H Anion Gap 3 L Critical Laboratory Results Reviewed: No Critical Results - Radiology Results Critical Radiology Results Reviewed: No Critical Results - EKG Interpretation by Me EKG shows normal: Sinus rhythm Rate: Normal Rhythm: NSR - No ST depression no ST elevation no T wave inversions No old EKG for comparison When compared to previous EKG there are: Previous EKG unavailable Discharge - Discharge Clinical Impression: Chronic abdominal pain, Chest pain, unspecified Condition: Good Disposition: HOME, SELF-CARE Instructions: Abdominal Pain ([facility]) Prescriptions: Lansoprazole 15 mg PO DAILY #30 capsule.dr Forms: Smoking Cessation Education Referrals: [facility] [Outside] - Follow up in 3-5 days (To establish primary care and to discuss smoking cessation)
[2020-09-04 16:41] VITALS: BP 149/86
--- NOTE | 2020-09-04 18:00 | EKG REPORT ---
SEVERITY:- NORMAL ECG - SINUS RHYTHM : Confirmed by: Juan A Maria MD 04-Sep-2020 17:59:07
== END 2020-09-04 16:40 | disposition home or self-care (01) ==
LOC: ER 14:00
DX: R07.89 Other chest pain (principal); K59.00 Constipation, unspecified; R10.9 Unspecified abdominal pain; G89.29 Other chronic pain; J45.909 Unspecified asthma, uncomplicated; Z63.5 Disruption of family by separation and divorce; F17.290 Nicotine dependence, other tobacco product, uncomplicated; Z88.6 Allergy status to analgesic agent; Z88.5 Allergy status to narcotic agent
CPT/HCPCS: 36415; 74022; 80053; 83690; 84484; 85025; 93005; 93010; 99285